=== PATIENT | male | born 1945 | race African-American/Black ===

== ENCOUNTER 2017-09-01 10:15 | Outpatient (RCR) | payer OTHER | END 2017-09-12 | disposition home or self-care (01) | LOC: PTY 10:15 | DX: M54.42 Lumbago with sciatica, left side (principal); G89.29 Other chronic pain ==

== ENCOUNTER 2017-09-13 15:00 | Outpatient (RCR) | payer OTHER | END 2017-10-13 | disposition home or self-care (01) | LOC: PTY 15:00 | DX: M54.42 Lumbago with sciatica, left side (principal); G89.29 Other chronic pain ==